=== PATIENT | female | born 1990 | race Two or more races ===

== ENCOUNTER 2017-10-01 11:16 | Outpatient (CLI) | payer MEDICAID | END 2017-10-01 13:07 | disposition home or self-care (01) | LOC: LC 11:16 | PROVIDERS: ATTEND Obstetrics & Gynecology | PROC: 4A1HXCZ Monitoring of Products of Conception, Cardiac Rate, External Approach (ICD-10-PCS; principal; 2017-10-01) | DX: O47.1 False labor at or after 37 completed weeks of gestation (principal); O48.0 Post-term pregnancy; Z3A.40 40 weeks gestation of pregnancy | CPT/HCPCS: 59025 ==

== ENCOUNTER 2017-10-03 03:51 | Inpatient (IN) | payer MEDICAID ==
[2017-10-03 04:19] LABS: APPEARANCE,URINE SLIGHTLY-CLOUDY; BILIRUBIN,URINE NEGATIVE (NEGATIVE); COLOR,URINE YELLOW; GLUCOSE, URINE NEGATIVE (NEGATIVE); KETONES,URINE 20 mg/dL (NEGATIVE); LEUKOCYTE ESTERASE,URINE NEGATIVE (NEGATIVE); NITRITE,URINE NEGATIVE (NEGATIVE); PROTEIN,URINE NEGATIVE (NEGATIVE); URINE SPECIFIC GRAVITY 1.016; UROBILINOGEN,URINE NEGATIVE mg/dL (<2.0)
[2017-10-03 04:35] LABS: URINE AMPHETAMINES SCREEN NEGATIVE; URINE BARBITURATES SCREEN NEGATIVE; URINE BENZODIAZEPINES SCREEN NEGATIVE; URINE COCAINE SCREEN NEGATIVE; URINE MARIJUANA (THC) SCREEN NEGATIVE; URINE METHADONE SCREEN NEGATIVE; URINE PHENCYCLIDINE SCREEN NEGATIVE
[2017-10-03 05:03] LABS: AMNISURE (ROM) POSITIVE (NEGATIVE)
[2017-10-03] MEDS ORDERED: RINGERS SOLUTION,LACTATED 1,000 ML IV PRN (05:05)
[2017-10-03] MEDS ORDERED: RINGERS SOLUTION,LACTATED 1,000 ML IV ONE (05:05)
[2017-10-03 06:03] LABS: ABSOLUTE BASOPHILS # (AUTO) 0.1 10^3/uL (0.0-0.2); ABSOLUTE LYMPHOCYTES (AUTO) 2.6 10^3/uL (0.5-4.7); ABSOLUTE MONOCYTES (AUTO) 1.3 10^3/uL (0.1-1.4); ABSOLUTE NEUT (AUTO) 10.4 10^3/uL (1.7-8.2); BASOPHILS % (AUTO) 0.4 % (0-2); EOSINOPHILS % (AUTO) 0.2 % (0-6); HEMATOCRIT 39.3 % (36.0-47.0); HEMOGLOBIN 13.2 g/dL (12.0-15.5); LYMPHOCYTES % (AUTO) 18.2 % (13-45); MEAN CORPUSCULAR HGB CONC 33.6 g/dL (32.0-36.0); MEAN CORPUSCULAR VOLUME 86 fl (80-97); MONOCYTES % (AUTO) 9.2 % (3-13); PLATELET COUNT 214 10^3/uL (150-450); RED BLOOD COUNT 4.56 10^6/uL (3.72-5.28); RED CELL DISTRIBUTION WIDTH 13.9 % (11.5-14.0); TOTAL CELLS COUNTED % (AUTO) 100 %; WHITE BLOOD COUNT 14.5 10^3/uL (4.0-10.5)
[2017-10-03] MEDS ORDERED: OXYTOCIN/NORMAL SALINE 20 UNIT/1,000 ML RTUINJ ONE ×2 (07:07→19:05)
[2017-10-03] MEDS ORDERED: OXYTOCIN/NORMAL SALINE 20 UNIT/1,000 ML RTUINJ IV PRN ×3 (07:10→18:21)
[2017-10-03] MEDS ORDERED: NALBUPHINE HCL INJ 10 MG/1 ML AMPULE INJ ONE (07:43)
[2017-10-03] MEDS ORDERED: NALBUPHINE HCL INJ 10 MG/1 ML AMPULE ONE (07:45)
[2017-10-03] MEDS ORDERED: LIDOCAINE 1% INJ-PF (10 MG/ML) 30 ML SDV ONE (08:48)
[2017-10-03] MEDS ORDERED: MISOPROSTOL 0.2 MG TABLET ONE (08:48)
[2017-10-03] MEDS ORDERED: FENTANYL CITRATE INJ/PF 100 MCG/2 ML AMPUL ONE ×3 (09:37→19:31)
[2017-10-03] MEDS ORDERED: FENTANYL/BUPIVACAINE/NS/PF 200 MCG/100 ML RTUINJ EPI ONE (09:37)
[2017-10-03] MEDS ORDERED: PHENYLEPHRINE HCL INJ/PF 10 MG/1 ML SDV ONE (09:37)
[2017-10-03] MEDS ORDERED: EPHEDRINE SULFATE INJ 50 MG/1 ML AMPULE ONE ×2 (09:37→16:52)
[2017-10-03] MEDS ORDERED: BUPIVACAINE HCL 0.25 % INJ/PF (2.5 MG/1 ML) 30 ML VIAL ONE (09:37)
[2017-10-03] MEDS ORDERED: TERBUTALINE SULFATE INJ/PF 1 MG/1 ML SDV ONE (10:35)
--- NOTE | 2017-10-03 16:38 | L&D Progress Notes ---
PROGRESS NOTES Datetime Report Generated by CPN: 10/03/2017 16:38 PROGRESS NOTE Impression Other: IUP @ 74w1w-nclonw Procedures: Intrauterine Pressure Catheter; Scalp Electrode; Sterile Vag Exam Plan: Continue Present Management Informed Consent Obtained: Vaginal Delivery; Section Delivery; Risks, Benefits and Alternatives Discussed Vital Signs : Reviewed Vital Signs Comments: tachycardia noted Comment: S: reports pain with contractions is returning O: pit @ 6mu/min, vss, cervix as stated A: IUP @40w1d PROM-with slow progression today. IUPC replaced without difficulty but not tracing well. FSE replaced. P: discussed with Dr. Mitchell who is in unit and aware of FHT strip and pt's status. Will go in and evaluate pt. at this time. VAGINAL EXAM Dilatation: 5 Dilatation: 2 Effacement: 100 Station: -1 Contractions: 1.50-3 MEMBRANES Membranes: Ruptured Amniotic Fluid Color: Bloody FETUS A Monitoring: Internal Scalp Electrode Decelerations: Late; Variable FHR Category: Category II SIGNATURE SIGNATURE: [id number] Assignment: Dorcas Mitchell MD Signature: with User ID: [email or web address] : with User ID: [email or web address]
[2017-10-03] MEDS ORDERED: CEFAZOLIN 1 GM/D5W RTU 1 GM/50 ML RTUPB IV ONE (16:44)
[2017-10-03] MEDS ORDERED: CEFAZOLIN 2 GM/D5W RTU 2 GM/50 ML RTUPB IV ONE (16:44)
[2017-10-03] MEDS ORDERED: LIDOCAINE 2%/EPINEPHRINE INJ 20 ML VIAL ONE (16:44)
[2017-10-03] MEDS ORDERED: SODIUM BICARBONATE 8.4% INJ 50 MEQ/50 ML DISP.SYRIN ONE (16:44)
[2017-10-03] MEDS ORDERED: CITRIC ACID/SODIUM CITRATE ORAL SOLN 15 ML UDCUP ONE (16:44)
[2017-10-03] MEDS ORDERED: OXYTOCIN 10 UNIT/ML VIAL ONE (16:52)
[2017-10-03] MEDS ORDERED: PROPOFOL INJ 200 MG/20 ML VIAL IV ONE (16:52)
[2017-10-03] MEDS ORDERED: MIDAZOLAM 2 MG/2 ML INJ ONE (16:53)
[2017-10-03] MEDS ORDERED: PROMETHAZINE HCL INJ 25 MG/1 ML VIAL IV PRN ×2 (17:30→18:21)
[2017-10-03] MEDS ORDERED: FENTANYL CITRATE INJ/PF 100 MCG/2 ML AMPUL IV PRN ×2 (17:30)
[2017-10-03] MEDS ORDERED: MORPHINE SULFATE 10 MG/ML INJ IV PRN (17:30)
[2017-10-03] MEDS ORDERED: DIPHENHYDRAMINE HCL 50 MG/ML VIAL IV PRN (17:30)
[2017-10-03] MEDS ORDERED: ONDANSETRON HCL INJ/PF 4 MG/2 ML SDV IV PRN (17:30)
[2017-10-03] MEDS ORDERED: MEPERIDINE HCL/PF INJ 25 MG/1 ML DISP.SYRIN IV PRN (17:30)
[2017-10-03] MEDS ORDERED: HYDROMORPHONE HCL INJ/PF 2 MG/ML AMPULE IV PRN (18:21)
[2017-10-03] MEDS ORDERED: ACETAMINOPHEN 100 ML IV PRN (18:21)
[2017-10-03] MEDS ORDERED: SIMETHICONE 80 MG TAB.CHEW PO PRN (18:21)
[2017-10-03] MEDS ORDERED: DIPH/PERTUSS(ACELL)/TETANUS VAC/PF 0.5 ML SYR (>=10YO) IM PRN (18:21)
[2017-10-03] MEDS ORDERED: ACETAMINOPHEN 325 MG TABLET PO PRN (18:21)
[2017-10-03] MEDS ORDERED: MEASLES,MUMPS&RUBELLA VACC/PF 0.5 ML VIAL SUBCUT PRN (18:21)
--- NOTE | 2017-10-03 18:32 | Brief Operative Note ---
BRIEF OPERATIVE REPORT DATE OF SURGERY: 10/03/17 TIME OF SURGERY: 18:00 PREOPERATIVE DIAGNOSIS: 40+1, , Non reassuring FHTs, PROM POSTOPERATIVE DIAGNOSIS: MILAGROS - Delivered SURGEON: BEVERLY GALARZA FINDINGS: normal uterus, normal tubes/ovaries, VMI delivered 1735, UOP 350ml, IVF 800ml, EBL 600ml COMPLICATIONS: none ESTIMATED BLOOD LOSS: 600ml TISSUE REMOVED OR ALTERED: placenta and cord - sent to pathology TECHNICAL PROCEDURE: Primary Section
[2017-10-03] MEDS ORDERED: ACETAMINOPHEN 100 ML IV ONE (18:33)
[2017-10-03] MEDS ORDERED: MEPERIDINE HCL/PF INJ 25 MG/1 ML DISP.SYRIN ONE (18:42)
[2017-10-03] MEDS: FENTANYL CITRATE INJ/PF 100 MCG/2 ML AMPUL IV PRN ×2 (19:33→20:05)
--- NOTE | 2017-10-03 19:44 | Delivery Summary ---
Del Sum A-C Datetime Report Generated by CPN: 10/03/2017 19:43 DELIVERY PERSONNEL DELIVERY PERSONNEL: [id number] Delivery Doctor:: Dorcas Mitchell MD Anesthesiologist:: Shannon Carson MD SPORT PSYCHOLOGIST:: Emerald Pryor CRNA Labor and Delivery Nurse:: Lor Campbell RN Spin Instructor:: FAHEEM Reed Prevention Specialist:: Dr Calderon Nursery Nurse:: Rosana Art RN Integration Software Developer/CASE ADVOCATE: [facility] Integration Software Developer/CASE ADVOCATE: Mark Herring CST Additional Personnel: : Mery Powell, RNC MATERNAL INFORMATION Delivery Anesthesia: Epidural Medications After Delivery: Pitocin Bolus-Please Comment Meds After Delivery Comment: Pitocin 20 units in 1 L NS bolusing per order Estimated Blood Loss (ml): 600 Maternal Complications: None LABOR SUMMARY EDC: 10/02/2017 00:00 No. Babies in Womb: 0 Attempted: No Labor Anesthesia: Epidural LABOR INFORMATION Reason for Induction: Not Applicable Onset of Labor: 10/03/2017 10:30 Complete Dilatation: 10/03/2017 12:04 Oxytocin: Induction Group B Beta Strep: negative Antibiotics # of Doses: 0 Antibiotics Time of Last Dose: n/a Name of Antibiotic Given: n/a Steroids Given: None Reason Steroids Not Administered: Not Applicable MEMBRANES Membranes Rupture Method: Spontaneous Rupture of Membranes: 10/03/2017 04:51 Length of Rupture (hr): 12.73 Amniotic Fluid Color: Light Meconium Amniotic Fluid Amount: Small Amniotic Fluid Odor: Normal STAGES OF LABOR Stage 1 hr: 1 Stage 1 min: 34 Stage 2 hr: 5 Stage 2 min: 31 Stage 3 hr: 0 Stage 3 min: 1 Total Time in Labor hr: 7 Total Time in Labor min: 6 VAGINAL DELIVERY Episiotomy: None Laceration #1: None Laceration Extension #1: N/A Laceration Repair: Not Applicable Sponge Count Correct: N/A Sharps Count Correct: N/A CSECTION DELIVERY Primary Indication: Nonreassuring Status Secondary Indication: Secondary Arrest of Dilatation CSection Urgency: Non-Scheduled CSection Incidence: Primary Labor: Labor Elective: Nonelective CSection Incision: Lower Uterine Transverse BABY A INFORMATION Delivery Date/Time: 10/03/2017 17:35 Method of Delivery: Born in Route : No : N/A Forceps: N/A Vacuum Extraction: N/A Shoulder Dystocia : No PRESENTATION/POSITION BABY A Presentation: Cephalic Cephalic Presentation: Vertex Vertex Position: n/a Breech Presentation: N/A PLACENTA INFORMATION BABY A Placenta Delivery Time : 10/03/2017 17:36 Placenta Method of Delivery: Manual Removal Placenta Status: Delivered SCORES BABY A Heart Rate 1 min: >100 bpm Resp Effort 1 min: Good Cry Reflex Irritability 1 min: Cough or Sneeze or Pulls Away Muscle Tone 1 min: Active Motion Color 1 min: Body [place], Extremities Blue Resuscitation Effort 1 min: Tactile Stimulation SCORE 1 MIN: 9 Heart Rate 5 min: >100 bpm Resp Effort 5 min: Good Cry Reflex Irritability 5 min: Cough or Sneeze or Pulls Away Muscle Tone 5 min: Active Motion Color 5 min: Body [place], Extremities Blue Resuscitation Effort 5 min: N/A SCORE 5 MIN: 9 Resuscitation Effort 10 min: N/A INFORMATION BABY A Gestational Age at Delivery: 40.1 Gestational Status: Full Term- 39- 40.6 Weeks Outcome : Liveborn Condition : Stable Sex: Male IDENTIFICATION BABY A Verification Date/Time: 10/03/2017 17:37 ID Band Number: [id number] Mother's Name Verified: Yes RN Verifying Infant: Mery Camp RNC Additional Verifying Personnel: Lor Campbell RN WEIGHT/LENGTH BABY A Birthweight (gm): 3320 Weight (lb): 7 Infant Weight (oz): 5 Infant Length (in): 20.00 Length (cm): 50.80 CORD INFORMATION BABY A No. Cord Vessels: 3 Nuchal Cord : N/A Cord Blood Taken: Yes-For Eval (Mom's Blood Type - or O+) Infant Suction: Mouth ASSESSMENT BABY A Complications: Multiple Variable Decels; Meconium Physical Findings at Delivery: Caput Succedaneum; Molding of the Head Respirations: Appears Normal Skin to Skin: No Skin to Skin Time (min): 0 Prevention Specialist/ALS Called : No Care By: Dr Calderon Transferred To: [facility] BABY B INFORMATION : N/A
[2017-10-03] MEDS: OXYCODONE-ACETAMINOPHEN 5-325 MG TABLET PO PRN (20:31)
[2017-10-03] MEDS ORDERED: OXYCODONE-ACETAMINOPHEN 5-325 MG TABLET ONE (20:31)
--- NOTE | 2017-10-03 21:23 | Admission Physical ---
Datetime Report Generated by CPN: 10/03/2017 21:22 CURRENT ADMISSION Chief Complaint: Suspected Ruptured Membranes Indication for Induction: Not Applicable Indication for Induction: Term, Intrauterine Admit Plan: Initiate Labor Protocol ALLERGIES Medication Allergies: No Medication Allergies: No Known Allergies (10/03/2017) Medication Allergies: No Known Allergies (10/01/2017) Latex: No Latex Allergies Food Allergies: none Environmental Allergies: none OBSTETRICAL HISTORY EDC: 10/02/2017 00:00 : 1 Para: 0 Term: 0 : 0 SAB: 0 IAB: 0 Ectopic: 0 Livin Cesareans: 0 VBACs: 0 Multiple Births: 0 Gestational Diabetes: No Rh Sensitization: No Incompetent Cervix: No ZOYA: No Infertility: No ART Treatment: No Uterine Anomaly: No IUGR: No Hx Previous C/S: No Macrosomia: No Hx Loss/Stillborn: No PIH: No Hx : No Placenta Previa/Abruption: No Depression/PP Depression: No PTL/PROM: No Post Hemorrhage: No Current Procedures: Ultrasound; NST Obstetrical History Comments: G1 - Current SEE RECORDS Alcohol: No Marijuana : No Cocaine: No Other Illicit Drugs: No Cigarettes: Never Smoker. [id number] MEDICAL HISTORY Diabetes: No Blood Transfusion: No Pulmonary Disease (Asthma, TB): No Breast Disease: No Hypertension: No Configuration Management Specialist Surgery: No Heart Disease: No Hosp/Surgery: No Autoimmune Disorder: No Anesthetic Complications: No Kidney Disease: No Abnormal Pap Smear: No Neuro/Epilepsy: No Psychiatric Disorders: No Other Medical Diseases: No Hepatitis/Liver Disease: No Significant Family History: No Varicosities/Phlebitis: No Trauma/Violence : No Thyroid Dysfunction: No INFECTIOUS HISTORY Gonorrhea: No Genital Herpes: No Chlamydia: No Tuberculosis: No Syphilis: No Hepatitis: No HIV/AIDS Exposure: No Rash or Viral Illness: No HPV: No PHYSICAL EXAM General: Normal HEENT: Normal Neurologic: Normal Thyroid: Normal Heart: Normal Lungs: Normal Breast: Deferred Back: Normal Abdomen: Normal Genitourinary Exam: Normal Extremities: Normal DTRs: Normal Pelvic Type: Adequate Vital Signs: Reviewed VAGINAL EXAM Dilatation: 5 Dilatation: 2 Effacement: 100 Station: -1 Contraction Comments: 1.50-3 MEMBRANES Membranes: Ruptured Amniotic Fluid Color: Bloody FETUS A EGA: 40.1 Monitoring: External US PLANS FOR LABOR AND DELIVERY Labor and Delivery: None Pain Management: Natural Feeding Preference: Breast Benefit of Breast Feed Discussed: Yes Circumcision: No INFORMED CONSENT Informed Consent Obtained: Section Delivery; Risks, Benefits and Alternatives Discussed Informed Consent Obtained: Vaginal Delivery; Section Delivery; Risks, Benefits and Alternatives Discussed Signature: with User ID: [email or web address]
[2017-10-03] MEDS ORDERED: MORPHINE SULFATE 10 MG/ML INJ IM ONE (22:31)
[2017-10-04] MEDS: KETOROLAC TROMETHAMINE INJ/PF 30 MG/1 ML SDV IV SCH ×3 (00:18→11:08)
[2017-10-04] MEDS: OXYCODONE-ACETAMINOPHEN 5-325 MG TABLET PO PRN ×4 (01:55→14:53)
[2017-10-04 07:39] LABS: HEMATOCRIT 30.6 % (36.0-47.0); MEAN CORPUSCULAR HEMOGLOBIN 29.8 pg (27.0-33.4); MEAN CORPUSCULAR HGB CONC 34.2 g/dL (32.0-36.0); MEAN CORPUSCULAR VOLUME 87 fl (80-97); PLATELET COUNT 185 10^3/uL (150-450); RED BLOOD COUNT 3.52 10^6/uL (3.72-5.28); WHITE BLOOD COUNT 16.2 10^3/uL (4.0-10.5)
[2017-10-04 07:43] LABS: HEMOGLOBIN 10.5 g/dL (12.0-15.5)
[2017-10-04] MEDS: PRENATAL VITAMIN W DHA CAPSULE PO SCH (10:45)
[2017-10-04] MEDS: DOCUSATE SODIUM 100 MG CAPSULE PO SCH ×2 (10:45→17:21)
--- NOTE | 2017-10-04 10:58 | PDOC PROGRESS REPORT ---
Subjective-OB Subjective: Post Delivery Day: 27 year old. Denies any needs at this time Physical Exam (OB) Vital Signs: Temp Pulse Resp BP Pulse Ox 98.6 F 116 H 16 106/55 L 96 10/04/17 07:46 10/04/17 07:46 10/04/17 07:46 10/04/17 07:46 10/04/17 07:46 Intake & Output 10/03/17 10/04/17 10/05/17 06:59 06:59 06:59 Intake Total 1500 Output Total 1900 400 Balance -400 -400 Weight 111.8 kg - Incision: Well Approximated Closure Type: Surgical Glue - Lochia Lochia Amount: Small 10-25 ml Lochia Color: Rubra/Red - Abdomen Description: Tender, Soft Hernia Present: No Bowel Sounds: Normoactive Flatus Presence: Present Stool: No Fundal Description: Firm, Midline Fundal Height: u/u - u/2 Objective-Diagnostic Laboratory: 10/04/17 07:08 10/04/17 07:08 WBC 16.2 H RBC 3.52 L Hgb 10.5 L D Hct 30.6 L MCV 87 MCH 29.8 MCHC 34.2 RDW 14.0 Plt Count 185
[2017-10-04] MEDS: IBUPROFEN 800 MG TABLET PO SCH ×2 (17:21→23:40)
[2017-10-05] MEDS: IBUPROFEN 800 MG TABLET PO SCH ×2 (05:48→12:09)
[2017-10-05] MEDS: OXYCODONE-ACETAMINOPHEN 5-325 MG TABLET PO PRN (08:10)
[2017-10-05 08:54] LABS: HEMOGLOBIN 10.1 g/dL (12.0-15.5); MEAN CORPUSCULAR HEMOGLOBIN 29.6 pg (27.0-33.4); MEAN CORPUSCULAR HGB CONC 33.7 g/dL (32.0-36.0); MEAN CORPUSCULAR VOLUME 88 fl (80-97); RED BLOOD COUNT 3.41 10^6/uL (3.72-5.28); RED CELL DISTRIBUTION WIDTH 14.2 % (11.5-14.0); WHITE BLOOD COUNT 18.8 10^3/uL (4.0-10.5)
[2017-10-05 09:22] LABS: PLATELET COUNT 195 10^3/uL (150-450)
--- NOTE | 2017-10-05 09:41 | PDOC PROGRESS REPORT ---
Subjective-OB Subjective: Post Delivery Day: 27 year old. Denies any needs at this time Doing well, OOB in room, hsb at BS, voiding, pain under control, voiding, no c/o Physical Exam (OB) Vital Signs: Temp Pulse Resp BP Pulse Ox 97.5 F 106 H 18 124/70 98 10/05/17 08:37 10/05/17 08:37 10/05/17 08:37 10/05/17 08:37 10/05/17 08:37 Intake & Output 10/04/17 10/05/17 10/06/17 06:59 06:59 06:59 Intake Total 1500 900 Output Total 1900 1200 Balance -400 -300 - PIH/Pre-Eclampsia DTR's: 2 + Clonus: Negative Headache: Absent Epigastric Pain: No Visual Changes: No - Dressing Removed: No Incision: Well Approximated Closure Type: Surgical Glue - Lochia Lochia Amount: Scant < 10 ml Lochia Color: Rubra/Red - Abdomen Description: Tender, Soft, Round Hernia Present: No Fundal Description: Firm, Midline Fundal Height: u/u - u/2 Objective-Diagnostic Laboratory: 10/05/17 08:09 10/05/17 08:09 WBC 18.8 H RBC 3.41 L Hgb 10.1 L Hct 30.0 L MCV 88 MCH 29.6 MCHC 33.7 RDW 14.2 H Plt Count 195 Assessment and Plan(PN) - Assessment and Plan (1) Anemia due to acute blood loss Is this a current diagnosis for this admission?: Yes (2) Secondary arrest of dilation Is this a current diagnosis for this admission?: Yes (3) S/P primary low transverse Is this a current diagnosis for this admission?: Yes (4) Limited care Qualifiers: Trimester: unspecified trimester Qualified Code(s): O09.30 - Supervision of with insufficient care, unspecified trimester Is this a current diagnosis for this admission?: Yes - Time Spent with Patient Time with patient: Less than 15 minutes Medications reviewed and adjusted accordingly: Yes - Disposition Anticipated Discharge: Home Within: Other - home today
--- NOTE | 2017-10-05 09:45 | PDOC DISCHARGE SUMMARY ---
Final Diagnosis Discharge Date: 10/05/17 - Final Diagnosis (1) Anemia due to acute blood loss Is this a current diagnosis for this admission?: Yes (2) Secondary arrest of dilation Is this a current diagnosis for this admission?: Yes (3) S/P primary low transverse Is this a current diagnosis for this admission?: Yes (4) Limited care Is this a current diagnosis for this admission?: Yes Discharge Data - Discharge Medication Prescriptions: Oxycodone HCl/Acetaminophen [Percocet 5-325 mg Tablet] 1 tab PO Q4HP PRN #30 tablet PRN Reason: Ibuprofen [Motrin 800 mg Tablet] 800 mg PO Q6 #60 tablet No122/Iron/Folic Acid [ Multi Tablet] 1 each PO DAILY #30 tablet Home Medications: Ibuprofen [Motrin 800 mg Tablet] 800 mg PO Q6 #60 tablet 10/05/17 Oxycodone HCl/Acetaminophen [Percocet 5-325 mg Tablet] 1 tab PO Q4HP PRN #30 tablet 10/05/17 No122/Iron/Folic Acid [ Multi Tablet] 1 each PO DAILY #30 tablet 10/05/17 Gestational Age: 40.1 Reason(s) for Admission: Induction of Labor Procedures: NST, Ultrasound Intrapartum Procedure(s): : Low Cervical, Transverse - Data Baby 1 Male at 1 minute: 9 at 5 minutes: 9 Weight: 3.317 kg Home with Mother: Yes Complications: No - Diagnosis Test Laboratory: Temp Pulse Resp BP Pulse Ox 97.5 F 106 H 18 124/70 98 10/05/17 08:37 10/05/17 08:37 10/05/17 08:37 10/05/17 08:37 10/05/17 08:37 10/03/17 10/03/17 10/04/17 04:03 05:45 07:08 RBC 4.56 3.52 L Hgb 13.2 10.5 L D Hct 39.3 30.6 L Urine Opiates Screen NEGATIVE 10/05/17 08:09 RBC 3.41 L Hgb 10.1 L Hct 30.0 L Urine Opiates Screen - Discharge information/Instructions Discharge Activity: Activity As Tolerated, No Lifting Over 10 Pounds, No Lifting /Push/Pulling, Pelvic Rest Discharge Diet: As Tolerated, Regular Disposition: HOME, SELF-CARE Follow up with: [facility] in: 1, Weeks
[2017-10-05] MEDS: PRENATAL VITAMIN W DHA CAPSULE PO SCH (12:09)
[2017-10-05] MEDS: DOCUSATE SODIUM 100 MG CAPSULE PO SCH (12:10)
[2017-10-05 13:01] VITALS: BP 140/78
--- NOTE | 2017-10-10 09:42 | Operative Report ---
Operative Report DATE OF SURGERY: 10/03/17 PREOPERATIVE DIAGNOSIS: 40+1, , Non reassuring FHTs, PROM POSTOPERATIVE DIAGNOSIS: MILAGROS - Delivered OPERATION: Primary Section SURGEON: BEVERLY GALARZA ANESTHESIA: GA TISSUE REMOVED OR ALTERED: placenta and cord - sent to pathology COMPLICATIONS: None ESTIMATED BLOOD LOSS: 600ml INTRAOPERATIVE FINDINGS: normal uterus, normal tubes/ovaries, VMI delivered 1735 , UOP 350ml, IVF 800ml, EBL 600ml PROCEDURE: Anesthesia: Spinal Anesthesia provider: [maria esther DAVIS] Estimated blood loss: [600ml] Urine output: [350ml] IV fluids: [800ml] Indications: [27yo G1 presented for PROM not in active labor and admitted for IOL due to PROM at 40+1ega. She had slow progression of labor throughout the day and IUPC placed with achievement of cervical dilation of 5cm. However, despite intrauterine resuscitation heart rate noted to have repetitive late decelerations and variable decelerations. Unable to continue pitocin for IOL due to NRFHTs and reviewed recommendations for section due to non reassuring FHRT. The risks/benefits/alternatives were reviewed and she desires to proceed with Primary section.] Procedure: The patient was taken to the operating room where epidural anesthesia was found to be adequate. She was then prepped and draped in the normal sterile fashion and placed in the dorsal supine position with a leftward tilt. A Pfannenstiel skin incision was then made and carried through to the underlying layers of the fascia with the scalpel. The fascia was incised in the midline and the incision extended laterally with the Tony scissors. The superior aspect of the fascial incision was then grasped with Mamadou clamps elevated and the underlying rectus muscles dissected off [bluntly]. Attention was then turned to the inferior aspect of the fascial incision which in a similar fashion was grasped, tented up with Mamadou clamps, and the rectus muscles dissected off [bluntly]. The rectus muscles were then in the midline and the peritoneum at the amount identified and entered [bluntly]. The peritoneal incision was then extended superiorly and inferiorly with good visualization of the bladder. The bladder blade was inserted and the vesicouterine peritoneum identified grasped with [place]ian pickups and entered sharply with the Metzenbaum scissors. This incision was then extended laterally with the Metzenbaum scissors and a bladder flap created digitally. The bladder blade was then reinserted and the lower uterine segment incised in a transverse fashion with the scalpel. The uterine incision was then extended bluntly. The bladder blade was removed and the 's head was delivered from cephalic presentation atraumatically. The nose and mouth were suctioned and the cord doubly clamped and cut. And the was handed off to waiting pediatricians. The placenta was then delivered spontaneously and the uterus exteriorized and cleared of all clots and debris. The uterine incision was then repaired with 1- 0 Vicryl in a running locked fashion. A second layer of the same suture was used to obtain hemostasis via imbrication of the initial layer. The bladder flap was then repaired with 3-0 chromic in a running fashion. The uterus was returned to the patient's abdomen and Interceed was placed overlying the uterine incision to prevent adhesions. The gutters were cleared of all clots and debris. All operative sites were noted to be hemostatic. The fascia was reapproximated with 0 Vicryl in a running fashion from each lateral edge to the midline. The skin was closed with 3-0 Monocryl in a running subcuticular fashion with overlying Dermabond for additional dressing as well as wound closure. The patient tolerated the procedure well. Sponge lap needle and instrument counts are correct times two. 3 g of Ancef were given prior to skin incision. The patient was taken to the recovery area awake and in stable condition.
== END 2017-10-05 13:04 | disposition home or self-care (01) | DRG 765 ==
LOC: LC 03:51 → LR 05:07 → 2S 21:21
PROVIDERS: ADMIT Obstetrics & Gynecology Gynecology; ATTEND Obstetrics & Gynecology Gynecology
PROC: 10D00Z1 Extraction of Products of Conception, Low, Open Approach (ICD-10-PCS; principal; 2017-10-03)
PROC: 10H073Z Insertion of Monitoring Electrode into Products of Conception, Via Natural or Artificial Opening (ICD-10-PCS; 2017-10-03)
PROC: 4A1H7CZ Monitoring of Products of Conception, Cardiac Rate, Via Natural or Artificial Opening (ICD-10-PCS; 2017-10-03)
PROC: 4A1HXCZ Monitoring of Products of Conception, Cardiac Rate, External Approach (ICD-10-PCS; 2017-10-03)
PROC: 3E033VJ Introduction of Other Hormone into Peripheral Vein, Percutaneous Approach (ICD-10-PCS; 2017-10-03)
PROC: 3E0234Z Introduction of Serum, Toxoid and Vaccine into Muscle, Percutaneous Approach (ICD-10-PCS; 2017-10-05)
DX: O76 Abnormality in fetal heart rate and rhythm complicating labor and delivery (principal); D62 Acute posthemorrhagic anemia; O62.0 Primary inadequate contractions; O99.02 Anemia complicating childbirth; O77.0 Labor and delivery complicated by meconium in amniotic fluid; Z28.21 Immunization not carried out because of patient refusal; Z23 Encounter for immunization; Z3A.40 40 weeks gestation of pregnancy; Z37.0 Single live birth
CPT/HCPCS: 1961; 36415; 80307; 81005; 84112; 85025; 85027; 86592; 86850; 86900; 86901; 88307; 90715; 94760; C1765; J0131; J0690; J2175; J2250; J2270; J2300; J2370; J2590; J2704; J3010; J3105; J3490